=== PATIENT | male | born 1970 | race Caucasian/White ===

== ENCOUNTER 2016-11-02 00:34 | Emergency (ER) | payer OTHER ==
[~2016-11-02] VITALS: Ht 177.8 cm; Wt 64.3 kg
[2016-11-02 00:39] VITALS: BP 148/104; PULSE 89; RESP 16; TEMP 98.7; O2SAT 96
[2016-11-02] MEDS ORDERED: TETANUS/DIPHTHERIA TOXOID ADULT 0.5 ML VIAL IM ONE (01:15)
[2016-11-02] MEDS ORDERED: DOXY100C PO (01:17)
[2016-11-02] MEDS ORDERED: BACT800T5 PO (01:17)
[2016-11-02] MEDS ORDERED: BACT2OIN TOPICAL (01:17)
--- NOTE | 2016-11-02 01:17 | PD ---
HPI Chief Complaint: Skin Problem Time Seen by Provider: 01:03 Travel History International Travel<30 days: No Contact w/Intl Traveler<30days: No Traveled to known affect area: No History of Present Illness HPI The patient is a 46-year-old male that 2 weeks ago scraped his lateral right lower leg on a cocaine rock. It got infected and he comes in tonight because the infection. His last tetanus shot was 2009. He denies any fever. PFSH Past Medical History Medical History: Denies Significant Hx Diminished Hearing: No Past Surgical History Surgical History: No Previous Surgery Social History Alcohol Use: Yes (2-3 BEERS PER DAY) Tobacco Use: Yes (10 CIGS PER DAY) Substance Use: No Allergies-Medications (Allergen,Severity, Reaction): Coded Allergies: No Known Allergies (Verified , 11/02/16) Reported Meds & Prescriptions Reported Meds & Active Scripts Active No Active Prescriptions or Reported Medications Review of Systems Except as stated in HPI: all other systems reviewed are Neg Physical Exam Narrative GENERAL: Well-nourished, well-developed patient. In slight apparent distress with his right lower leg discomfort SKIN: Warm and dry. There is an abrasion which has gotten infected and is about 2 cm in diameter on the lateral aspect of the right lower leg. It is not deep enough to call it an ulcer yet. There is no lymphadenitis present but there is cellulitis extending superiorly and inferiorly about 10 cm proximally and distally. HEAD: Normocephalic. EYES: No scleral icterus. No injection or drainage. NECK: Supple, trachea midline. No JVD or lymphadenopathy. CARDIOVASCULAR: Regular rate and rhythm without murmurs, gallops, or rubs. RESPIRATORY: Breath sounds equal bilaterally. No accessory muscle use. GASTROINTESTINAL: Abdomen soft, non-tender, nondistended. MUSCULOSKELETAL: No cyanosis, or edema. BACK: Nontender without obvious deformity. No CVA tenderness. Data Data Last Documented VS Vital Signs Date Time Temp Pulse Resp B/P Pulse Ox O2 Delivery O2 Flow Rate FiO2 11/02/16 00:39 98.7 89 16 148/104 96 Room Air Orders Wound Care (11/02/16 01:11) Tetanus/Diphtheria Tox Adult (Tetanus/Di (11/02/16 01:15) MDM Medical Decision Making Medical Screen Exam Complete: Yes Emergency Medical Condition: Yes Medical Record Reviewed: Yes Differential Diagnosis Cellulitis, abscess, infected abrasion Narrative Course The patient has cellulitis localized around the wound of the right lower leg. Plan: He needs to elevate the leg above his heart, use warm compresses or soak 2 times daily and is given doxycycline and Bactroban and Septra DS. The oral antibiotics are twice daily for 10 days. Diagnosis Primary Impression: Cellulitis of right lower extremity Med/Other Pt SpecificInfo: Prescription(s) given Scripts Mupirocin Topical (Bactroban Topical)2% Oint1 Applic TOPICAL BID #22 GM Ref 0 Prov:Paresh Carey MD 11/02/16 Sulfamethoxazole-Trimethoprim (Bactrim DS)800-160 Mg Tab1 Tab PO BID #20 TAB Ref 0 Prov:Paresh Carey MD 11/02/16 Doxycycline Hyclate 100 Mg [id number] Mg PO BID #20 CAP Ref 0 Prov:Paresh Carey MD 11/02/16 Disposition: 01 DISCHARGE HOME Condition: Stable Paresh Carey MD Nov 02, 2016 01:17
[2016-11-02] MEDS ORDERED: DOXYCYCLINE HYCLATE 100 MG CAP PO ONE (01:30)
[2016-11-02] MEDS ORDERED: MUPIROCIN 2% CREAM 15 GM TOPICAL ONE (01:30)
[2016-11-02] MEDS ORDERED: SULFAMETHOXAZOLE-TRIMETHOPRIM DS 800-160 MG TAB PO ONE (01:30)
[2016-11-02 01:50] VITALS: BP 153/77; PULSE 79; RESP 18; TEMP 98; O2SAT 97
== END 2016-11-02 01:58 | disposition home or self-care (01) ==
LOC: PHED 00:34
DX: L03.115 Cellulitis of right lower limb (principal); Z23 Encounter for immunization; F17.210 Nicotine dependence, cigarettes, uncomplicated; F10.10 Alcohol abuse, uncomplicated
CPT/HCPCS: 90471; 90714